=== PATIENT | female | born 1990 | race Caucasian/White ===

== ENCOUNTER 2017-04-26 08:57 | Emergency (ER) | payer OTHER ==
[2017-04-26 09:46] LABS: BASOPHILS # (AUTO) 0.1 10^3/uL (0.0-0.1); EOSINOPHILS # (AUTO) 0.6 10^3/uL (0.0-0.7); EOSINOPHILS % (AUTO) 5.6 %; HCT - HEMATOCRIT 41.3 % (37.0-47.0); LYMPHOCYTES # (AUTO) 1.9 10^3/uL (1.5-3.5); MEAN CORPUSCULAR HGB CONC 33.9 g/dL (32.0-36.0); MEAN CORPUSCULAR VOLUME 88.5 fL (81.0-99.0); MEAN PLATELET VOLUME 9.2 fL (7.9-10.8); MONOCYTES # (AUTO) 0.7 10^3/uL (0.0-1.0); MONOCYTES % (AUTO) 6.4 %; NEUTROPHILS # (AUTO) 6.9 10^3/uL (1.5-6.6); RED BLOOD COUNT 4.67 10^6/uL (4.20-5.40); UNCORRECTED WHITE BLOOD COUNT 10.2 x10^3/uL; WHITE BLOOD COUNT 10.2 x10^3/uL (4.8-10.8)
--- NOTE | 2017-04-26 09:49 | XRAY Preliminary Report ---
Exam: XR CHEST 1 VIEW IMPRESSION: Normal single view chest. [facility] SITE ID: [id number]
--- NOTE | 2017-04-26 09:51 | XRAY Report ---
EXAM: CHEST RADIOGRAPHY EXAM DATE: 04/26/2017 09:44 AM. CLINICAL HISTORY: Chest pain. Midsternal chest pain. Dizziness. COMPARISON: None. TECHNIQUE: 1 view. FINDINGS: Lungs/Pleura: No focal opacities evident. No pleural effusion. No pneumothorax. Mediastinum: Within exam limitations, the cardiomediastinal contour is normal. Other: None. IMPRESSION: Normal single view chest. [facility] Referring Provider Line: [phone] SITE ID: [id number]
[2017-04-26] MEDS ORDERED: SODIUM CHLORIDE 0.9% 1,000 ML IV ONE ×2 (09:58→11:21)
[2017-04-26 10:00] LABS: ALBUMIN/GLOBULIN RATIO 1.5 (1.0-2.2); BILIRUBIN,TOTAL 0.8 mg/dL (0.2-1.0); CALCIUM 9.8 mg/dL (8.5-10.3); CREATININE 0.8 mg/dL (0.4-1.0); POTASSIUM 3.9 mmol/L (3.5-5.0); TOTAL PROTEIN 7.6 g/dL (6.7-8.2)
[2017-04-26 11:47] LABS: BILIRUBIN,URINE NEGATIVE (NEGATIVE); PH,URINE 7.5 PH (5.0-7.5)
[2017-04-26 11:49] LABS: HCG UR QUAL NEGATIVE; UA w/ MICROSCOPIC CHARGE YES
[2017-04-26 12:08] LABS: UR CULTURE IF IND INDICATED
[2017-04-26] MEDS ORDERED: cefTRIAXone 1 GM in SODIUM CHLORIDE 0.9% MINIBAG 100 ML IV STA (12:41)
--- NOTE | 2017-04-26 12:45 | ED Physician Documentation ---
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 She noted that she was not feeling well and felt some pressure in her chest. These symptoms lasted about 15 minutes. 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 At that time she remembers similar near syncope and chest pain without specific diagnoses. Today she called 911 and in route to the hospital she did have a brief syncopal episode. Review of Systems Constitutional: denies: Fever, Chills, Myalgias Eyes: denies: Decreased vision Ears: denies: Ear pain Nose: denies: Congestion Throat: denies: Sore throat Cardiac: reports: Chest pain / pressure, Palpitations. denies: Pedal edema, Calf pain Respiratory: denies: Dyspnea, Cough, Hemoptysis, Wheezing GI: denies: Abdominal Pain, Nausea, Vomiting : reports: Vaginal bleeding. denies: Dysuria, Frequency, Discharge Skin: denies: Rash Musculoskeletal: denies: Neck pain, Back pain, Extremity pain PD PAST MEDICAL HISTORY - Past Medical History Cardiovascular: Murmur Respiratory: None Neuro: None Endocrine/Autoimmune: None GI: None ELEVATOR ATTENDANT: Other : None HEENT: None Derm: None Other Past Medical History: increased vaginal bleeding. - Past Surgical History Past Surgical History: Yes Ortho: ACL reconstruction - Present Medications Home Medications: Ambulatory Orders Medication Instructions Recorded Confirmed Etonogestrel [Nexplanon] 68 mg ID ONCE 04/26/17 04/26/17 Sulfamethoxazole/Trimethoprim 1 each PO BID #10 tablet 04/26/17 [Sulfamethoxazole-Tmp Ds Tablet] - Allergies Allergies/Adverse Reactions: Allergies Allergy/AdvReac Type Severity Reaction Status Date / Time No Known Drug Allergies Allergy Verified 09/29/15 18:04 - Social History Does the pt smoke?: No Smoking Status: Never smoker Does the pt drink ETOH?: No Does the pt have substance abuse?: No - Immunizations Immunizations are current?: Yes PD ED PE NORMAL - Vitals Vital signs reviewed: Yes (bradycardic) - General General: No acute distress, Well developed/nourished - HEENT HEENT: Atraumatic, PERRL, EOMI, Ears normal, Other (dry mucous membranes) - Neck Neck: Supple, no meningeal sign, No bony TTP - Cardiac Cardiac: RRR, Other (1/6 holosystolic murmer at LSB) - Respiratory Respiratory: No respiratory distress, Clear bilaterally - Abdomen Abdomen: Soft, Non tender - Back Back: No CVA TTP, No spinal TTP - Derm Derm: Normal color, Warm and dry, No rash - Extremities Extremities: No deformity, No edema - Neuro Neuro: No motor deficit, No sensory deficit - Psych Psych: Normal mood, Normal affect Results - Vitals Vitals: Vital Signs - 24 hr 04/26/17 04/26/17 04/26/17 09:00 09:43 10:52 Temperature 36.6 C Heart Rate 51 L 52 L 53 L Respiratory 16 13 18 Rate Blood Pressure 128/71 128/71 130/67 O2 Saturation 98 97 98 04/26/17 13:03 Temperature 37.1 C Heart Rate 55 L Respiratory 17 Rate Blood Pressure 122/61 O2 Saturation 97 Oxygen O2 Source Room air - EKG (time done) 0902 Rate: Rate (enter#) (51) Rhythm: Sinus bradycardia Compare to prior EKG: Old EKG unavailable Computer interpretation: Agree with computer - Labs Labs: Laboratory Tests 04/26/17 04/26/17 04/26/17 09:34 09:34 09:34 WBC 10.2 RBC 4.67 Hgb 14.0 Hct 41.3 MCV 88.5 MCH 30.0 MCHC 33.9 RDW 13.0 Plt Count 228 MPV 9.2 Neut # 6.9 H Lymph # 1.9 Ceiba # 0.7 Eos # 0.6 Baso # 0.1 Absolute Nucleated RBC 0.00 Nucleated RBC % 0.0 Sodium 138 Potassium 3.9 Chloride 105 Carbon Dioxide 23 Anion Gap 10.0 BUN 18 Creatinine 0.8 Estimated GFR (MDRD) 88 L Glucose 96 Calcium 9.8 Total Bilirubin 0.8 AST 20 ALT 23 Alkaline Phosphatase 66 Troponin I < 0.04 Total Protein 7.6 Albumin 4.5 Globulin 3.1 Albumin/Globulin Ratio 1.5 Lipase 26 Urine Color Urine Clarity Urine pH Ur Specific [place] Urine Protein Urine Glucose (UA) Urine Ketones Urine Occult Blood Urine Nitrite Urine Bilirubin Urine Urobilinogen Ur Leukocyte Esterase Urine RBC Urine WBC Ur Squamous Epith Cells Urine Bacteria Ur Microscopic Review Urine Culture Comments Urine HCG, Qual 04/26/17 11:35 WBC RBC Hgb Hct MCV MCH MCHC RDW Plt Count MPV Neut # Lymph # Ceiba # Eos # Baso # Absolute Nucleated RBC Nucleated RBC % Sodium Potassium Chloride Carbon Dioxide Anion Gap BUN Creatinine Estimated GFR (MDRD) Glucose Calcium Total Bilirubin AST ALT Alkaline Phosphatase Troponin I Total Protein Albumin Globulin Albumin/Globulin Ratio Lipase Urine Color YELLOW Urine Clarity SL. CLOUDY Urine pH 7.5 Ur Specific [place] 1.010 Urine Protein NEGATIVE Urine Glucose (UA) NEGATIVE Urine Ketones 15 H Urine Occult Blood NEGATIVE Urine Nitrite POSITIVE H Urine Bilirubin NEGATIVE Urine Urobilinogen 0.2 (NORMAL) Ur Leukocyte Esterase NEGATIVE Urine RBC 0-5 Urine WBC 6-10 H Ur Squamous Epith Cells RARE Squamous Urine Bacteria Moderate H Ur Microscopic Review INDICATED Urine Culture Comments INDICATED Urine HCG, Qual NEGATIVE - Rads (name of study) 1 view chest Radiology: Prelim report reviewed (Impression: Normal single view chest.), EMP read indepedently, See rad report Procedures - IVC sono (time) 0950 Bedside IVC sono: IVC measures (cm) (0.77), Significant dehydration PD MEDICAL DECISION MAKING - ED course Complexity details: reviewed results, re-evaluated patient, considered differential, d/w patient, d/w family ED course: 26-year-old female with near syncope and tachycardia on standing presents to the emergency department with bradycardia and is found to have volume depletion. Her volume depletion is significant and she is administered intravenous fluids. She is administered 2 L of normal saline is able to produce a urine specimen and the urine appears infected. This patient had near syncope and intravenous Rocephin is administered. The patient feels improved and is discharged to home. I suspect this episode of near syncope is related to the dehydration. I suspect the dehydration is related to the patient's exercise regime despite the fact that she appeared to drink adequate fluids following her spin class last night. The patient is concerned about blood loss ongoing from menstrual bleeding. Today her blood counts are normal and I am not able to blame this near-syncope on anemia. Departure - Departure Disposition: 01 Home, Self Care Clinical Impression: Dehydration Urinary tract infection Qualifiers: Urinary tract infection type: acute cystitis Hematuria presence: without hematuria Qualified Code(s): N30.00 - Acute cystitis without hematuria Condition: Stable Instructions: ED Dehydration, ED Bleed Irregular Vaginal, ED UTI Cystitis Female Follow-Up: Maxi Last DO [Primary Care Provider] - [facility] [Provider Group] Prescriptions: Sulfamethoxazole/Trimethoprim [Sulfamethoxazole-Tmp Ds Tablet] 1 each PO BID # 10 tablet Forms: Activity restrictions Discharge Date/Time: 04/26/17 14:02
[2017-04-26] MEDS ORDERED: cefTRIAXone 1 GM VIAL ONE (13:01)
[2017-04-26 13:04] VITALS: BP 122/61
== END 2017-04-26 14:02 | disposition home or self-care (01) ==
LOC: EDUNIT# → ED 08:57
DX: E86.0 Dehydration (principal); N30.00 Acute cystitis without hematuria
CPT/HCPCS: 36415; 71010; 80053; 81001; 81003; 81025; 83690; 84484; 85025; 87077; 87086; 93005; 96361; 96365; 99284